=== PATIENT | female | born 1935 | race Hispanic/Latino ===

== ENCOUNTER 2020-02-12 19:04 | Emergency (ER) | payer MEDICARE, OTHER ==
[~2020-02-12] VITALS: Ht 152.4 cm; Wt 78.5 kg
[~2020-02-12 19:04] MED LIST: HYDROCHLOR; LEVOTHYROXINE; Z LEVOTHROID PO; Z.0.CEFTIN500 MG PO; Z.0.FOLIC ACID1 MG PO; Z.0.LISINOPRIL-HCT1 PO; Z.0.PRINIVIL5 MG; Z.0.SIMVASTATIN10 MG PO; Z.0.TAMIFLU75 MG PO; Z.0.WARFARIN SODIUM5; Z.1.METHOTREXATE2.5 PO
--- NOTE | 2020-02-12 20:01 | NUR ---
RETURNED FROM XR TO RM 3
--- NOTE | 2020-02-12 20:15 | Diagnostic Imaging Report ---
Examination: Single AP view of the chest. COMPARISON: None. INDICATION: Cough fever and sore throat for 3 days IMPRESSION: 1. Lines and Tubes: None 2. Lungs are well-inflated. Mild coarsening of the interstitial markings are predominantly in the lower lobes, likely reflecting chronic interstitial changes. No consolidation or effusion. 3. Cardiomediastinal silhouette is normal. Pulmonary vasculature is normal. Tortuous aorta. 4. No acute bony abnormalities. Signed by: Dr. Shawn Troncoso M.D. on 02/12/2020 8:12 PM
--- NOTE | 2020-02-12 21:06 | Emergency Department Note ---
History of Present Illnes History of Present Illness Chief Complaint: General Medicine Complaints History of Present Illness This is a 84 year old female Chief Complaint Comment pt states epigastric pain since this afternoon, denies N/V/D last BM this AM. . Historian: Patient Arrival Mode: Car Onset (how long ago): day(s) (3) Location: sore throat Quality: throat Radiation: Denies non-radiation, Denies back, Denies neck, Denies extremity, Denies abdomen, Denies periumbilical, Denies flank, Denies proximal, Denies distal, Denies other Severity: moderate Onset quality: gradual Duration (how long): day(s) (2) Timing of current episode: intermittent Progression: waxing and waning Chronicity: new Context: Denies recent illness, Denies recent surgery, Denies recent immobilization, Denies recent travel, Denies trauma/injury, Denies new medications, Denies hx of DVT/PE, Denies non-compliance w/ medications, Denies other Relieving factors: none Exacerbating factors: none Associated symptoms: Reports fever/chills, Reports malaise; Denies denies other symptoms, Denies confusion, Denies chest pain, Denies cough, Denies diaphoresis, Denies headaches, Denies loss of appetite, Denies nausea/vomiting, Denies rash, Denies seizure, Denies shortness of breath, Denies syncope, Denies weakness, Denies other Treatments prior to arrival: none Past Medical/Family History Physician Review I have reviewed the patient's past medical and family history. Any updates have been documented here. Past Medical History Recent Fever: No Clinical Suspicion of Infectio: No New/Unexplained Change in Ment: No Past Medical History: Hypothyroidism Other Medical History: HIGH CHOLESTEROL Past Surgical History: Hysterectomy Social History Smoking Cessation: Never Smoker Alcohol Use: None Any Illegal Drug Use: No Physically hurt or threatened: No Other Last Tetanus: UNKNOWN Any Pre-Existing Lines (PICC,: No Review of Systems Review of Systems Constitutional: Reports as per HPI, Reports fever EENTM: Reports as per HPI Cardiovascular: Reports no symptoms Respiratory: Reports no symptoms Gastrointestinal: Reports no symptoms Genitourinary: Reports no symptoms Musculoskeletal: Reports no symptoms Integumentary: Reports no symptoms Neurological: Reports no symptoms Psychological: Reports no symptoms Endocrine: Reports no symptoms Hematological/Lymphatic: Reports no symptoms Physical Exam Related Data Allergies: Coded Allergies: No Known Allergies (Unverified , 11/01/11) Triage Vital Signs Vital Signs Date Time Temp Pulse Resp B/P (MAP) Pulse Ox O2 Delivery O2 Flow Rate FiO2 02/12/20 19:35 99.1 80 18 145/75 95 Room Air Vital signs reviewed: Yes Physical Exam CONSTITUTIONAL Constitutional: Present well-developed, Present well-nourished HENT HENT: Present normocephalic, Present atraumatic, Present oropharynx clear/moist, Present nose normal, Present erythema HENT L/R: Present left ext ear normal, Present right ext ear normal EYES Eyes: Reports PERRL, Reports conjunctivae normal NECK Neck: Present ROM normal PULMONARY Pulmonary: Present effort normal, Present breath sounds normal CARDIOVASCULAR Cardiovascular: Present regular rhythm, Present heart sounds normal, Present capillary refill normal, Present normal rate GASTROINTESTINAL Abdominal: Present soft, Present nontender, Present bowel sounds normal GENITOURINARY Genitourinary: Present exam deferred SKIN Skin: Present warm, Present dry MUSCULOSKELETAL Musculoskeletal: Present ROM normal NEUROLOGICAL Neurological: Present alert, Present oriented x 3, Present no gross motor or sensory deficits PSYCHOLOGICAL Psychological: Present mood/affect normal, Present judgement normal Results Laboratory Lab results reviewed: Yes Imaging Imaging results reviewed: Yes Assessment & Plan Medical Decision Making MDM pharyngtis pneumonia Reassessment Reassessment time: 21:05 Reassessment better Assessment & Plan Final Impression: (1) Flu (2) Fever (3) Pharyngitis, acute (4) Myalgia Depart Disposition: HOME, SELF-CARE Last Vital Signs Date Time Temp Pulse Resp B/P (MAP) Pulse Ox O2 Delivery O2 Flow Rate FiO2 02/12/20 19:35 99.1 80 18 145/75 95 Room Air Home Meds Reported Medications Cefuroxime Axetil (Ceftin) 500 Mg Tablet, 500 MG PO BID for 7 Days 11/26/11 Oseltamivir Phosphate (Tamiflu) 75 Mg Capsule, 75 MG PO BID 11/26/11 Methotrexate Sodium (Methotrexate) 2.5 Mg Tablet, 5 MG PO BID ON FRIDAYS ONLY 11/01/11 Folic Acid (Folic Acid) 1 Mg Tablet, 1 MG PO DAILY 11/01/11 Simvastatin (Simvastatin) 10 Mg Tablet, 10 MG PO DAILY 11/01/11 Lisinopril/Hydrochlorothiazide (Lisinopril-Hctz 05/08.5 Tb) 1 Each Tablet, MG PO DAILY 11/01/11 Levothyroxine Sodium (Levothroid) 88 Mcg Tablet, 88 MCG PO DAILY 11/01/11 CAIN WARD MD Feb 12, 2020 21:06
[2020-02-12] MEDS ORDERED: CEFDINIR300 MG PO (21:08)
[2020-02-12 22:06] VITALS: BP 144/76
--- NOTE | 2020-02-14 10:45 | NUR ---
Pt notified of COVID test results and need to return to ED if s/s worsened. Pt verbalizes understanding.
== END 2020-02-12 21:15 | disposition home or self-care (01) ==
LOC: FSED 19:45
DX: J11.1 Influenza due to unidentified influenza virus with other respiratory manifestations (principal); R50.9 Fever, unspecified; R10.13 Epigastric pain; M79.10 Myalgia, unspecified site
CPT/HCPCS: 71045; 80053; 81003; 83518; 85025; 87400; 99284; U0002